=== PATIENT | male | born 1985 | race African-American/Black ===

== ENCOUNTER 2022-01-05 10:38 | Outpatient (REF) | payer OTHER, SELFPAY ==
[2022-01-05 13:44] LABS: MANUAL DIFF FLAG NO
[2022-01-05 13:52] LABS: Basophils Absolute Auto 0.1 X10*3/uL (0.0-0.2); Basophils Percent Auto 0.7 % (0-2); Eosinophils Absolute Auto 0.1 X10*3/uL (0.0-0.4); Eosinophils Percent Auto 1.4 % (0-4); Hematocrit 43.9 % (42.0-52.0); Hemoglobin 13.6 g/dl (14.0-18.0); Imm Gran Abs Auto 0.03 X10*3/uL (0.00-0.03); Imm Gran Pct Auto 0.4 % (0.0-0.4); Lymphocytes Absolute Auto 1.7 X10*3/uL (1.2-4.9); Lymphocytes Percent Auto 22.4 % (20-40); Mean Corpuscular Hemoglobin 25.2 pg (27.0-33.0); Mean Corpuscular Volume 81.3 fL (80.0-98.0); Mean Platelet Volume 9.7 fL (9.4-12.4); Monocytes Absolute Auto 0.8 X10*3/uL (0.1-1.2); Monocytes Percent Auto 10.3 % (2-11); Neutrophils Percent Auto 64.8 % (45-73); Platelet Count 343 X10*3/uL (160-400); White Blood Count 7.6 X10*3/uL (4.8-10.8)
[2022-01-05 14:00] LABS: Appearance Urine CLEAR; Color Urine YELLOW; Glucose Urine UA NEG (NEG); Leukocyte Esterase Urine NEG (NEG); Nitrite Urine NEG (NEG); UACC Culture Trigger NO; Urine Blood TRACE (NEG); Urine Ketones NEG (NEG); Urine Protein NEG (NEG-TRACE)
[2022-01-05 14:01] LABS: Alanine Aminotransferase 30 U/L (0-40); Albumin Level 3.7 g/dL (3.5-5.0); Alkaline Phosphatase 66 U/L (39-117); Anion Gap 14 (12-20); Aspartate Amino Transferase 22 U/L (5-37); Bilirubin Total 0.4 mg/dL (0.0-1.0); Blood Urea Nitrogen 11 mg/dL (9-16); Calcium 9.4 mg/dL (8.4-10.2); Carbon Dioxide 24 mmol/L (22-29); Chloride 103 mmol/L (96-108); Cholesterol 221 mg/dL; Estimated Glomerular Filt Rate > 60; Glucose Fasting 96 mg/dL (60-99); HDL Cholesterol 42 mg/dL; LDL Cholesterol Calculated 161 mg/dl; Potassium 4.1 mmol/L (3.3-5.1); Sodium 137 mmol/L (135-145); Total Protein 7.3 g/dL (6.5-8.0); Triglycerides 90 mg/dL
[2022-01-05 14:11] LABS: RBC Urine 0-2 /HPF (0); WBC Urine 0-2 /HPF (0-4)
[2022-01-05 14:22] LABS: TSH reflex Free T4 1.06 uIU/mL (0.32-4.0)
[2022-01-07 13:20] LABS: Prot Elec - Albumin 3.6 g/dL (3.8-4.8); Prot Elec - Alpha1 0.3 g/dL (0.2-0.3); Prot Elec - Alpha2 0.9 g/dL (0.5-0.9); Prot Elec - Beta 1 0.6 g/dL (0.4-0.6); Prot Elec - Beta 2 0.6 g/dL (0.2-0.5); Prot Elec - Gamma 1.3 g/dL (0.8-1.7); Prot Elec - Total Protein 7.3 g/dL (6.1-8.1)
[2022-01-09 21:26] LABS: Kappa Light Chain, Free Serum 34.2 mg/L (3.3-19.4); Kappa/Lambda Lt Ch Free Ratio 1.05 (0.26-1.65); Lambda Light Chain, Free Serum 32.7 mg/L (5.7-26.3)
== END 2022-01-05 10:39 | disposition home or self-care (01) ==
LOC: HO.HMGCLDS 10:38
PROVIDERS: Visit Provider Nurse Practitioner Family
DX: Z00.00 Encounter for general adult medical examination without abnormal findings (principal); Z83.49 Family history of other endocrine, nutritional and metabolic diseases
CPT/HCPCS: 36415; 80053; 80061; 81001; 81003; 83521; 84165; 84443; 85025

== ENCOUNTER 2022-01-07 10:26 | Outpatient (REF) | payer OTHER, SELFPAY ==
[2022-01-11 08:21] LABS: PEU-PROT/CRE Ratio mg/mg 0.062 (< OR = 0.114); PEU24-Albumin Urine 100 %; PEU24-Alpha 1 Globulin 0 %; PEU24-Alpha 2 Globulin 0 %; PEU24-Beta Globulin 0 %; PEU24-Gamma Globulin 0 %; Total Protein 24Hr Urine 180 mg/24 h (<150); Total Protein/Creat Ratio 24h 62 mg/g creat (< OR = 114)
== END 2022-01-07 10:27 | disposition home or self-care (01) ==
LOC: HO.HMGCLNP 10:26
PROVIDERS: Visit Provider Nurse Practitioner Family
DX: Z83.49 Family history of other endocrine, nutritional and metabolic diseases (principal)
CPT/HCPCS: 82570; 84156; 84166

== ENCOUNTER 2022-02-02 08:39 | Outpatient (REF) | payer OTHER, SELFPAY ==
--- NOTE | ~2022-02-02 | US_ITS ---
EXAMINATION: US RETROPERITONEAL COMPLETE (RENAL) CLINICAL INFORMATION: Other microscopic hematuria. COMPARISON: None TECHNIQUE: Real-time imaging of the kidneys and bladder. FINDINGS: RIGHT KIDNEY: 12.1 x 5.0 x 6.6 cm (SAG x AP x TRV). The kidney is normal in size, contour, and echogenicity. Renal cortical thickness is normal. No calculi or focal parenchymal lesions. No hydronephrosis. LEFT KIDNEY: 13.2 x 5.6 x 5.7 cm (SAG x AP x TRV). The kidney is normal in size, contour, and echogenicity. Renal cortical thickness is normal. No calculi or focal parenchymal lesions. No hydronephrosis. BLADDER: Well distended and normal. Bilateral ureteral jets are demonstrated. Prevoid bladder volume is 161 mL. Postvoid bladder volume is 5 mL. ADDITIONAL FINDINGS: Prostate is enlarged with a volume of 46 mL. Partially imaged liver appears echogenic. US/US retroperitoneal comp IMPRESSION: No hydronephrosis or nephrolithiasis. Prostate is mildly enlarged. Increased hepatic echogenicity which can be seen in the setting of hepatic steatosis or underlying liver disease.
== END 2022-02-02 08:40 | disposition home or self-care (01) ==
LOC: HO.HMGCX 08:39
PROVIDERS: Visit Provider Nurse Practitioner Family
DX: R31.29 Other microscopic hematuria (principal)
CPT/HCPCS: 76770

== ENCOUNTER 2022-11-27 08:06 | Outpatient (REF) | payer OTHER, SELFPAY ==
[2022-11-27 11:24] LABS: Urine Cytology See Pathology rpt
[2022-11-27 11:34] LABS: MANUAL DIFF FLAG NO
[2022-11-27 11:45] LABS: Basophils Absolute Auto 0.1 X10*3/uL (0.0-0.2); Basophils Percent Auto 0.6 % (0-2); Eosinophils Absolute Auto 0.1 X10*3/uL (0.0-0.4); Eosinophils Percent Auto 1.3 % (0-4); Hematocrit 44.3 % (42.0-52.0); Hemoglobin 13.7 g/dl (14.0-18.0); Imm Gran Abs Auto 0.03 X10*3/uL (0.00-0.03); Imm Gran Pct Auto 0.4 % (0.0-0.4); Lymphocytes Absolute Auto 2.8 X10*3/uL (1.2-4.9); Lymphocytes Percent Auto 33.9 % (20-40); Mean Corpuscular HGB Conc 30.9 g/dl (31.0-36.0); Mean Corpuscular Hemoglobin 24.8 pg (27.0-33.0); Mean Corpuscular Volume 80.1 fL (80.0-98.0); Mean Platelet Volume 10.3 fL (9.4-12.4); Monocytes Absolute Auto 0.8 X10*3/uL (0.1-1.2); Monocytes Percent Auto 9.7 % (2-11); Neutrophils Absolute Auto 4.5 x10*3/uL (2.0-8.3); Neutrophils Percent Auto 54.1 % (45-73); Platelet Count 339 X10*3/uL (160-400); Red Blood Count 5.53 X10*6/uL (4.60-5.80); Red Cell Distribution Width 16.3 % (11.0-16.0); White Blood Count 8.3 X10*3/uL (4.8-10.8)
[2022-11-27 12:15] LABS: Appearance Urine Clear; Color Urine Yellow; Glucose Urine UA Negative (Negative); Leukocyte Esterase Urine Negative (Negative); Nitrite Urine Negative (Negative); Specific Gravity - Urine 1.015 (1.005-1.025); Urine Blood Negative (Negative); Urine Ketones Negative (Negative); Urine Protein Negative (Neg-Trace)
[2022-11-27 12:21] LABS: Bacteria Urine None Seen (None Seen); Hyaline Casts Urine 0-2 /LPF (0-2); RBC Urine 0-2 /HPF (0-2); Squamous Epithelial Cell Urine 0-2 /HPF (0-2); WBC Urine 0-5 /HPF (0-5)
[2022-11-27 12:26] LABS: Cholesterol 218 mg/dL; HDL Cholesterol 38 mg/dL; Iron 38 mcg/dL (45-160); LDL Cholesterol Calculated 154 mg/dl; Percent Iron Saturation 14 % (15-50); Total Iron Binding Capacity 279 mcg/dL (228-428); Triglycerides 130 mg/dL; Unsaturated Iron Binding 241 ug/dL
[2022-11-27 12:59] LABS: Ferritin 225 ng/mL (20-250); Folate 4.4 ng/mL (> or = 4.0); Vitamin B12 403 pg/mL (200-900)
== END 2022-11-27 08:07 | disposition home or self-care (01) ==
LOC: HO.HMGCLDS 08:06
PROVIDERS: PCP Nurse Practitioner Family; Visit Provider Nurse Practitioner Family
DX: Z00.00 Encounter for general adult medical examination without abnormal findings (principal); E78.5 Hyperlipidemia, unspecified; R31.29 Other microscopic hematuria; D64.9 Anemia, unspecified
CPT/HCPCS: 36415; 80061; 81001; 81003; 82607; 82728; 82746; 83540; 85025; 87086; 88112

== ENCOUNTER 2023-03-02 09:43 | Outpatient (REF) | payer OTHER, SELFPAY ==
[2023-03-02 11:17] LABS: MANUAL DIFF FLAG NO
[2023-03-02 11:32] LABS: Appearance Urine Clear; Basophils Absolute Auto 0.1 X10*3/uL (0.0-0.2); Basophils Percent Auto 0.8 % (0-2); Color Urine Yellow; Eosinophils Absolute Auto 0.1 X10*3/uL (0.0-0.4); Eosinophils Percent Auto 1.8 % (0-4); Glucose Urine UA Negative (Negative); Hematocrit 43.5 % (42.0-52.0); Hemoglobin 13.7 g/dl (14.0-18.0); Imm Gran Abs Auto 0.03 X10*3/uL (0.00-0.03); Imm Gran Pct Auto 0.4 % (0.0-0.4); Leukocyte Esterase Urine Negative (Negative); Lymphocytes Absolute Auto 2.4 X10*3/uL (1.2-4.9); Lymphocytes Percent Auto 32.7 % (20-40); Mean Corpuscular HGB Conc 31.5 g/dl (31.0-36.0); Mean Corpuscular Volume 79.4 fL (80.0-98.0); Mean Platelet Volume 9.7 fL (9.4-12.4); Monocytes Absolute Auto 0.6 X10*3/uL (0.1-1.2); Monocytes Percent Auto 8.9 % (2-11); Neutrophils Percent Auto 55.4 % (45-73); Nitrite Urine Negative (Negative); PH 6.5 (5.0-9.0); Platelet Count 327 X10*3/uL (160-400); Red Blood Count 5.48 X10*6/uL (4.60-5.80); Red Cell Distribution Width 16.6 % (11.0-16.0); Urine Blood Negative (Negative); Urine Ketones Negative (Negative); Urine Protein Negative (Neg-Trace); White Blood Count 7.2 X10*3/uL (4.8-10.8)
[2023-03-02 13:30] LABS: Alanine Aminotransferase 28 U/L (0-40); Albumin Level 3.6 g/dL (3.5-5.0); Alkaline Phosphatase 60 U/L (39-117); Anion Gap 13 (12-20); Aspartate Amino Transferase 21 U/L (5-37); Bilirubin Total 0.4 mg/dL (0.0-1.0); Blood Urea Nitrogen 14 mg/dL (9-16); Calcium 9.7 mg/dL (8.4-10.2); Carbon Dioxide 25 mmol/L (22-29); Chloride 106 mmol/L (96-108); Cholesterol 194 mg/dL; Estimated Glomerular Filt Rate > 60; Glucose Random 97 mg/dL (60-115); HDL Cholesterol 41 mg/dL; Iron 78 mcg/dL (45-160); LDL Cholesterol Calculated 139 mg/dl; Percent Iron Saturation 29 % (15-50); Potassium 3.8 mmol/L (3.3-5.1); Sodium 140 mmol/L (135-145); Total Iron Binding Capacity 269 mcg/dL (228-428); Total Protein 7.5 g/dL (6.5-8.0); Triglycerides 74 mg/dL; Unsaturated Iron Binding 191 ug/dL
[2023-03-02 13:32] LABS: Iron 78 mcg/dL (45-160); Percent Iron Saturation 29 % (15-50); Total Iron Binding Capacity 270 mcg/dL (228-428); Unsaturated Iron Binding 192 ug/dL
[2023-03-02 13:38] LABS: Ferritin 258 ng/mL (20-250)
[2023-03-02 13:39] LABS: Ferritin 239 ng/mL (20-250); TSH reflex Free T4 1.62 uIU/mL (0.32-4.0)
== END 2023-03-02 09:44 | disposition home or self-care (01) ==
LOC: HO.HMGCLDS 09:43
PROVIDERS: PCP Nurse Practitioner Family; Visit Provider Nurse Practitioner Family
DX: I10 Essential (primary) hypertension (principal); D64.9 Anemia, unspecified; E78.5 Hyperlipidemia, unspecified
CPT/HCPCS: 36415; 80053; 80061; 81003; 82728; 83540; 84443; 85025

== ENCOUNTER 2023-09-12 11:22 | Outpatient (REF) | payer OTHER, SELFPAY ==
[2023-09-12 13:29] LABS: Appearance Urine Clear; Color Urine Yellow; Glucose Urine UA Negative (Negative); Leukocyte Esterase Urine Negative (Negative); Nitrite Urine Negative (Negative); Urine Blood Negative (Negative); Urine Ketones Negative (Negative); Urine Protein Negative (Neg-Trace)
[2023-09-12 13:38] LABS: MANUAL DIFF FLAG NO
[2023-09-12 13:53] LABS: Basophils Absolute Auto 0.1 X10*3/uL (0.0-0.2); Basophils Percent Auto 0.6 % (0-2); Eosinophils Absolute Auto 0.2 X10*3/uL (0.0-0.4); Eosinophils Percent Auto 2.2 % (0-4); Hematocrit 44.6 % (42.0-52.0); Hemoglobin 14.3 g/dl (14.0-18.0); Imm Gran Abs Auto 0.07 X10*3/uL (0.00-0.03); Imm Gran Pct Auto 0.8 % (0.0-0.4); Lymphocytes Absolute Auto 2.5 X10*3/uL (1.2-4.9); Lymphocytes Percent Auto 29.3 % (20-40); Mean Corpuscular HGB Conc 32.1 g/dl (31.0-36.0); Mean Corpuscular Hemoglobin 25.8 pg (27.0-33.0); Mean Corpuscular Volume 80.4 fL (80.0-98.0); Mean Platelet Volume 9.6 fL (9.4-12.4); Monocytes Absolute Auto 0.9 X10*3/uL (0.1-1.2); Monocytes Percent Auto 10.8 % (2-11); Neutrophils Absolute Auto 4.8 x10*3/uL (2.0-8.3); Neutrophils Percent Auto 56.3 % (45-73); Platelet Count 315 X10*3/uL (160-400); Red Blood Count 5.55 X10*6/uL (4.60-5.80); Red Cell Distribution Width 15.8 % (11.0-16.0); White Blood Count 8.5 X10*3/uL (4.8-10.8)
[2023-09-12 16:59] LABS: Alanine Aminotransferase 49 U/L (0-40); Albumin Level 3.7 g/dL (3.5-5.0); Alkaline Phosphatase 59 U/L (39-117); Anion Gap 14 (12-20); Aspartate Amino Transferase 35 U/L (5-37); Bilirubin Total 0.3 mg/dL (0.0-1.0); Blood Urea Nitrogen 12 mg/dL (9-16); Calcium 9.4 mg/dL (8.4-10.2); Carbon Dioxide 24 mmol/L (22-29); Chloride 105 mmol/L (96-108); Cholesterol 212 mg/dL (<200); Estimated Glomerular Filt Rate > 60; Glucose Fasting 91 mg/dL (60-99); HDL Cholesterol 52 mg/dL (>40); LDL Cholesterol Calculated 136 mg/dL (<100); Potassium 3.8 mmol/L (3.3-5.1); Sodium 139 mmol/L (135-145); Total Protein 7.5 g/dL (6.5-8.0); Triglycerides 124 mg/dL (<150)
[2023-09-12 17:03] LABS: TSH reflex Free T4 2.01 uIU/mL (0.32-4.0)
== END 2023-09-12 11:23 | disposition home or self-care (01) ==
LOC: HO.HMGCLDS 11:22
PROVIDERS: PCP Nurse Practitioner Family; Visit Provider Nurse Practitioner Family
DX: E78.5 Hyperlipidemia, unspecified (principal); I10 Essential (primary) hypertension
CPT/HCPCS: 36415; 80053; 80061; 81003; 84443; 85025

== ENCOUNTER 2024-02-12 08:43 | Outpatient (REF) | payer OTHER, SELFPAY ==
[2024-02-12 10:22] LABS: MANUAL DIFF FLAG NO
[2024-02-12 10:33] LABS: Appearance Urine Clear; Color Urine Yellow; Glucose Urine UA Negative (Negative); Leukocyte Esterase Urine Negative (Negative); Nitrite Urine Negative (Negative); Urine Blood Negative (Negative); Urine Ketones Negative (Negative); Urine Protein Negative (Neg-Trace)
[2024-02-12 10:34] LABS: Basophils Percent Auto 0.8 % (0-2); Eosinophils Absolute Auto 0.1 X10*3/uL (0.0-0.4); Eosinophils Percent Auto 2.3 % (0-4); Hematocrit 45.1 % (42.0-52.0); Hemoglobin 14.1 g/dl (14.0-18.0); Imm Gran Abs Auto 0.02 X10*3/uL (0.00-0.03); Imm Gran Pct Auto 0.4 % (0.0-0.4); Lymphocytes Percent Auto 39.9 % (20-40); Mean Corpuscular HGB Conc 31.3 g/dl (31.0-36.0); Mean Corpuscular Hemoglobin 25.3 pg (27.0-33.0); Neutrophils Absolute Auto 1.9 x10*3/uL (2.0-8.3); Neutrophils Percent Auto 36.6 % (45-73); Platelet Count 305 X10*3/uL (160-400); Red Blood Count 5.57 X10*6/uL (4.60-5.80); Red Cell Distribution Width 16.4 % (11.0-16.0); White Blood Count 5.1 X10*3/uL (4.8-10.8)
[2024-02-12 10:56] LABS: Alanine Aminotransferase 24 U/L (0-40); Albumin Level 3.8 g/dL (3.5-5.0); Alkaline Phosphatase 65 U/L (39-117); Anion Gap 12 (12-20); Aspartate Amino Transferase 20 U/L (5-37); Bilirubin Total 0.2 mg/dL (0.0-1.0); Blood Urea Nitrogen 16 mg/dL (9-16); Calcium 9.1 mg/dL (8.4-10.2); Carbon Dioxide 25 mmol/L (22-29); Chloride 107 mmol/L (96-108); Cholesterol 198 mg/dL (<200); Estimated Glomerular Filt Rate > 60; Glucose Fasting 97 mg/dL (60-99); HDL Cholesterol 41 mg/dL (>40); LDL Cholesterol Calculated 141 mg/dL (<100); Potassium 3.9 mmol/L (3.3-5.1); Sodium 140 mmol/L (135-145); Total Protein 7.5 g/dL (6.5-8.0); Triglycerides 84 mg/dL (<150)
[2024-02-12 11:14] LABS: TSH reflex Free T4 1.18 uIU/mL (0.32-4.0)
== END 2024-02-12 08:44 | disposition home or self-care (01) ==
LOC: HO.HMGCLDS 08:43
PROVIDERS: PCP Nurse Practitioner Family; Visit Provider Nurse Practitioner Family
DX: Z00.00 Encounter for general adult medical examination without abnormal findings (principal); Z13.6 Encounter for screening for cardiovascular disorders
CPT/HCPCS: 36415; 80053; 80061; 81003; 84443; 85025

== ENCOUNTER 2024-02-14 11:26 | Outpatient (AMB) | payer OTHER, SELFPAY ==
--- NOTE | 2024-02-14 11:28 | A.OFFPC_ITS ---
Vital Signs 02/14/24 11:31 02/14/24 12:25 Height 6 ft 1 in Weight 308 lb BMI 40.6 BP 130/90 H 130/88 Blood Pressure Location Rt brachial Position Sitting Pulse 78 Pulse Source Pulse Oximeter Pulse Oximetry (%) 98 Oxygen Delivery Method Room Air Intake Visit Reasons: weight loss options Intake Note: Patient here to discuss weight loss options and right eye redness that has been present for about 2 days. Allergies No Known Allergies Allergy (Verified 02/14/24 11:32) Tobacco use date assessed: 02/14/24 Dental Screening Dental Screen Date: 02/14/24 Did you have a dental visit in the last 12 months?: Yes Did you have a dental problem in the last 6 months where you did not have access to dental care?: No Was dental information given to patient?: Patient has dentist HPI weight loss options HPI Details Dyslipidemia: Pt reports that he has not been taking rosuvastatin because he forgot about it. Will resend rosuvastatin 10mg. Denies chest pain, shortness of breath, and dizziness. Pt has been losing weight. Pt reports deve loping right conjunctivitis 2 days ago. Will send ocuflox. dyslipidemia: pt has not been on his statin in quite sometime, will restart PFSH Medical History HTN (hypertension) Dyslipidemia Surgical History History of knee surgery Social History Housing: House Patient Tobacco Use Status: Never used Tobacco e-Cigarette/Vaping Use: Currently Using Second Hand Smoke Exposure: No service: No Current occupational status: employed Current occupation: [employer] Current occupational exposures/hazards: No Cognitive needs: No Hearing needs: No Vision needs: No Questionnaire PHQ-9 Over the last 2 weeks, how often have you been bothered by any of the following problems? 84483 - PHQ-9 Billing: Patient declined-do not bill Source: Developed by Drs. Vadim Kuo, Marcia Swain, Lam Vasquez and colleagues, with an educational shellie from [employer]. Thrive Questionnaire Date Thrive assessed: 12/07/22 AUDIT C Alcohol Use Questionnaire (AUDIT-C) 1. How often do you have a drink containing alcohol?: Monthly or less 2. How many drinks containing alcohol do you have on a typical day when you are drinking?: 3 or 4 3. How often do you have six or more drinks on one occasion?: Never Total Score: 2 Score Reviewed/Action Taken: No ARABELLA-7 AMB Questionnaire ARABELLA-7 Date ARABELLA - 7 assessed: 12/07/22 Source: Developed by Drs. Vadim Kuo, Marcia Swain, Lam Vasquez and colleagues, with an educational shellie from [employer]. ARABELLA-7 Assessment Billing ARABELLA-7 Assessment Tool: pt declined-do not bill Review of Systems Const Reports as per HPI Physical exam (Primary Care) Vital Signs: Last Vital Signs Pulse 78 02/14/24 11:31 BP 130/88 02/14/24 12:25 Pulse Ox 98 02/14/24 11:31 Oxygen Delivery Method Room Air 02/14/24 11:31 BMI result Body Mass Index 40.6 Tobacco/Smoking Status: Tobacco use Status Tobacco use date assessed 02/14/24 02/14/24 11:35 Patient Tobacco Use Status Never used Tobacco 02/14/24 11:30 e-Cigarette/Vaping Use Currently Using 02/14/24 11:30 Thrive Assessment: Date of Thrive Assessment Date Thrive assessed 12/07/22 02/14/24 11:30 Const General: cooperative Nutritional Appearance: obese morbidly obese Orientation/consciousness: patient oriented x3 Eyes Other: right lower conjuctiva swollen and erythematous, sclera erythematous Resp Effort & Inspection: normal respiratory effort Auscultation: clear to auscultation bilaterally Cardio Rate: regular rate Rhythm: regular rhythm Heart sounds: S1 normal heart sound present and S2 normal heart sound present Neuro General: patient oriented x3 Psych Appearance: grossly normal Mental Status: mental status grossly normal Speech and movement: Normal speech and movement present Affect: normal affect Attitude: cooperative Thought process: Normal thought process present Thought content: Normal thought content present Insight: Good insight present (Psych) Judgement: Good judgement present (Psych) Assessment and Plan Assessment & Plan (1) Obesity: Code(s): E66.9 - Obesity, unspecified Plan: cont to work on diet and exercise (2) Dyslipidemia: Code(s): E78.5 - Hyperlipidemia, unspecified Plan: restarted rosuvastatin Plan The patient agreed to the use of a district medical examiner for this encounter. Scribed for HARTIHA Wills by Skye Mcarthur district medical examiner, on 02/14/2024 at 11:50 EST. Medications: New rosuvastatin 10 mg PO DAILY 90 tabs 0RF ofloxacin 0.3% (Ocuflox) 2 drps ophthalmic (eye) QID 10 mL 0RF 5 days Coding Level of Care Code Est Pt Level 3 (57811) Diagnoses Obesity E66.9 Dyslipidemia E78.5
[2024-02-14 11:31] VITALS: BP 130/90; PULSE 78; O2SAT 98; BMI 40.6
[2024-02-14 12:25] VITALS: BP 130/88
== END 2024-02-14 12:32 | disposition home or self-care (01) ==
PROVIDERS: PCP Nurse Practitioner Family; Visit Provider Nurse Practitioner Family
DX: E78.5 Hyperlipidemia, unspecified (principal); E66.9 Obesity, unspecified; Z68.41 Body mass index [BMI] 40.0-44.9, adult
CPT/HCPCS: 99213

== ENCOUNTER 2024-09-09 09:48 | Outpatient (REF) | payer OTHER, SELFPAY ==
[2024-09-09 13:16] LABS: MANUAL DIFF FLAG NO
[2024-09-09 13:22] LABS: Basophils Percent Auto 0.6 % (0-2); Eosinophils Absolute Auto 0.2 X10*3/uL (0.0-0.4); Eosinophils Percent Auto 3.3 % (0-4); Hematocrit 44.4 % (42.0-52.0); Hemoglobin 14.2 g/dl (14.0-18.0); Imm Gran Abs Auto 0.02 X10*3/uL (0.00-0.03); Imm Gran Pct Auto 0.3 % (0.0-0.4); Lymphocytes Absolute Auto 3.6 X10*3/uL (1.2-4.9); Mean Corpuscular Hemoglobin 26.2 pg (27.0-33.0); Mean Corpuscular Volume 81.9 fL (80.0-98.0); Mean Platelet Volume 9.9 fL (9.4-12.4); Monocytes Absolute Auto 0.7 X10*3/uL (0.1-1.2); Monocytes Percent Auto 9.9 % (2-11); Neutrophils Absolute Auto 2.4 x10*3/uL (2.0-8.3); Neutrophils Percent Auto 33.9 % (45-73); Platelet Count 279 X10*3/uL (160-400); Red Blood Count 5.42 X10*6/uL (4.60-5.80); Red Cell Distribution Width 15.6 % (11.0-16.0)
[2024-09-09 13:24] LABS: Appearance Urine Clear; Color Urine Yellow; Glucose Urine UA Negative (Negative); Leukocyte Esterase Urine Negative (Negative); Nitrite Urine Negative (Negative); Urine Blood Negative (Negative); Urine Ketones Negative (Negative); Urine Protein Negative (Neg-Trace)
[2024-09-09 13:39] LABS: Alanine Aminotransferase 40 U/L (0-40); Albumin Level 3.8 g/dL (3.5-5.0); Alkaline Phosphatase 75 U/L (39-117); Anion Gap 11 (12-20); Aspartate Amino Transferase 34 U/L (5-37); Bilirubin Total 0.3 mg/dL (0.0-1.0); Blood Urea Nitrogen 14 mg/dL (9-16); Calcium 9.2 mg/dL (8.4-10.2); Carbon Dioxide 26 mmol/L (22-29); Chloride 106 mmol/L (96-108); Cholesterol 250 mg/dL (<200); Estimated Glomerular Filt Rate > 60; Glucose Fasting 103 mg/dL (60-99); HDL Cholesterol 42 mg/dL (>40); LDL Cholesterol Calculated 189 mg/dL (<100); Potassium 3.8 mmol/L (3.3-5.1); Sodium 139 mmol/L (135-145); Total Protein 7.6 g/dL (6.5-8.0); Triglycerides 97 mg/dL (<150)
[2024-09-09 14:22] LABS: TSH reflex Free T4 0.81 uIU/mL (0.32-4.0)
== END 2024-09-09 09:49 | disposition home or self-care (01) ==
LOC: HO.HMGCLDS 09:48
PROVIDERS: PCP Nurse Practitioner Family; Visit Provider Nurse Practitioner Family
DX: I10 Essential (primary) hypertension (principal)
CPT/HCPCS: 36415; 80053; 80061; 81003; 84443; 85025

== ENCOUNTER 2024-10-01 08:23 | Outpatient (AMB) | payer OTHER, SELFPAY ==
[2024-10-01 08:26] VITALS: BP 132/80; PULSE 76; O2SAT 98; BMI 43.5
--- NOTE | 2024-10-01 08:26 | A.OFFPC_ITS ---
Vital Signs 10/01/24 08:26 Height 6 ft 1 in Weight 330 lb BMI 43.5 BP 132/80 Blood Pressure Location Rt brachial Position Sitting Pulse 76 Pulse Source Pulse Oximeter Pulse Oximetry (%) 98 Oxygen Delivery Method Room Air Intake Visit Reasons: PE Intake Note: pt is here for annual exam Loan Documents Closer Required: No Accompanied by: Self / Same As Patient Allergies No Known Allergies Allergy (Verified 10/01/24 08:26) Tobacco use date assessed: 10/01/24 Dental Screening Dental Screen Date: 10/01/24 Did you have a dental visit in the last 12 months?: Yes Did you have a dental problem in the last 6 months where you did not have access to dental care?: No Was dental information given to patient?: Patient has dentist HPI PE HPI Details History of Present Illness The patient is a 39-year-old male presenting with a previous allergic reaction. Approximately one to one and a half months ago, he experienced a reaction after dining at a restaurant. The reaction consisted of widespread hives but was not accompanied by shortness of breath or throat closure. The patient speculated that a spice might have been the cause, although he is unsure. He reported that taking allergy medication was effective in alleviating the hives. The following day, the patient developed dry, peeling skin, but has not experienced any similar reactions since. Currently, he denies experiencing fever, chills, nausea, vomiting, or gastrointestinal disturbances such as diarrhea or constipation. He is monitoring his condition and will report if the reaction recurs. Health Maintenance - Discussed potential use of GLP-[address] for weight management. - Advised the patient to contact his [facility] provider for coverage details regarding GLP-1 agonists. Social History Review of Systems - General: Denies fever, chills. - Gastrointestinal: Denies nausea, vomit ing, constipation, diarrhea. - Psychological: Denies depression, anxi ety, suicidal thoughts, homicidal thoughts. Physical Exam General: Cooperative, healthy appearing, comfortable, no acute distress and well developed, morbidly obese Orientation: Patient oriented x3 Limitations: No limitations Head: Normal to inspection Ears: Hearing grossly normal bilaterally Nose: Normal external nose present Face and sinus: Normal facial exam Eyes: Appearance normal, both eyes and all related structures Neck: Normal visual inspection and Yes full ROM Respiratory: Normal respiratory effort and able to speak in complete sentences. Clear to auscultation bilaterally Cardiovascular: Regular rate and rhythm. Normal S1 and S2 GI: Normal to inspection. Soft to palpation and nontender Skin: No rashes or lesions noted, history of hives and very dry skin that peeled after an allergic reaction Neuro: Patient oriented x3 Extremities: Normal to inspection, no edema Results Plan - Allergy Management: Advised continued observation. Instructed to monitor for any recurrences of allergic reactions and report back. - Weight Management: Discussed the possi bility of initiating a GLP-1 agonist if covered by insurance. Encouraged continued efforts with diet and exercise for weight management. Advised the patient to contact insurance regarding coverage for medications in this class. Patient was informed and verbally consented to the use of an ambient scribe for clinic note documentation during this visit. Discussion Notes I discussed the patient's recent allergic reaction and the effectiveness of the allergy medication in resolving the hives. As he did not experience typical severe symptoms such as shortness of breath, it is possible that it was a mild allergic reaction. I instructed him to stay vigilant and report any recurrences. We also considered the potential benefits of a GLP-1 agonist for weight management, pending insurance coverage. The patient understands the necessity of confirming coverage with his insurance provider. Patient Instructions - Monitor for any symptoms of a recurren t allergic reaction and report if they occur. - Continue with a balanced diet and regu lar exercise as previously discussed. - Contact your insurance provider to det ermine coverage options for a GLP-1 agonist. [facility] Medical History HTN (hypertension) Dyslipidemia Surgical History History of knee surgery Social History Housing: House Patient Tobacco Use Status: Never used Tobacco e-Cigarette/Vaping Use: Currently Using Second Hand Smoke Exposure: No service: No Current occupational status: employed Current occupation: [employer] Current occupational exposures/hazards: No Cognitive needs: No Hearing needs: No Vision needs: No Questionnaire PHQ-9 Over the last 2 weeks, how often have you been bothered by any of the following problems? 1. Little interest or pleasure in doing things: not at all 2. Feeling down, depressed, or hopeless: not at all 3. Trouble falling or staying asleep, or sleeping too much: not at all 4. Feeling tired or having little energy: not at all 5. Poor appetite or overeating: not at all 6. Feeling bad about yourself - or that you are a failure or have let yourself or your family down: not at all 7. Trouble concentrating on things, such as reading the newspaper or watching television: not at all 8. Moving or speaking so slowly that other people could have noticed. Or the opposite - being so fidgety or restless that you have been moving around a lot more than usual: not at all 9. Thoughts that you would be better off or of hurting yourself in some way: not at all Total score: 0 Depression Screening Interpretation: Negative Depression Screening Done: Yes 59116 - PHQ-9 Billing: Yes Source: Developed by Drs. Vadim Kuo, Marcia Swain, Lam Vasquez and colleagues, with an educational shellie from [employer]. Thrive Questionnaire Date Thrive assessed: 10/01/24 I am a: Patient What is your living situation today?: I choose not to answer this question Within the past 12 months, did the food you bought not last and you didn't have the money to get more?: I choose not to answer this question Within the past 12 months, did you worry whether your food would run out before you got money to buy more?: I choose not to answer this question Do you have trouble paying for medicines?: I choose not to answer this question Do you have trouble getting transportation to medical appointments?: I choose not to answer this question Do you have trouble paying your heating and electricity bill?: I choose not to answer this question Do you have trouble taking care of your child, family member or friend?: I choose not to answer this question Do you have trouble with day-to-day activities such as bathing, preparing meals, shopping, managing finances, etc.?: I choose not to answer this question Are you currently unemployed and looking for a job?: I choose not to answer this question Are you interested in more education?: I choose not to answer this question Please select the resources that you would like help with: None Currently or been in a relationship where the following occur: I choose not to answer THRIVE Score: 0 AUDIT C Alcohol Use Questionnaire (AUDIT-C) 1. How often do you have a drink containing alcohol?: Monthly or less 2. How many drinks containing alcohol do you have on a typical day when you are drinking?: 1 or 2 3. How often do you have six or more drinks on one occasion?: Less than monthly Total Score: 2 Score Reviewed/Action Taken: Yes ARABELLA-7 AMB Questionnaire ARABELLA-7 Date ARABELLA - 7 assessed: 10/01/24 Feeling nervous, anxious, or on edge: 0 = Not at all Not being able to stop or control worryin = Not at all Worrying too much about different things: 0 = Not at all Trouble relaxin = Not at all Being so restless that it is hard to sit still: 0 = Not at all Becoming easily annoyed or irritable: 0 = Not at all Feeling afraid as if something awful might happen: 0 = Not at all Total ARABELLA-7 score (0-4 normal; 5-9 mild; 10-14 moderate; 15-21 severe): 0 Source: Developed by Drs. Vadim Kuo, Marcia Swain, Lam Vasquez and colleagues, with an educational shellie from [employer]. ARABELLA-7 Assessment Billing ARABELLA-7 Assessment Tool: ARABELLA-7 Assessment 64434 Physical exam (Primary Care) Vital Signs: Last Vital Signs Pulse 76 10/01/24 08:26 BP 132/80 10/01/24 08:26 Pulse Ox 98 10/01/24 08:26 Oxygen Delivery Method Room Air 10/01/24 08:26 BMI result Body Mass Index 43.5 Tobacco/Smoking Status: Tobacco use Status Tobacco use date assessed 10/01/24 10/01/24 08:27 Patient Tobacco Use Status Never used Tobacco 10/01/24 08:27 e-Cigarette/Vaping Use Currently Using 10/01/24 08:27 PHQ-9: PHQ-9 Score PHQ-9: Total score 0 10/01/24 08:54 Depression Screening Interpretation: Negative Thrive Assessment: Date of Thrive Assessment Date Thrive assessed 10/01/24 10/01/24 08:27 Currently or been in a relationship where the following occur: I choose not to answer Coding Level of Care Code Est Pt Prev Care 18-39y(63795) Diagnoses Physical exam Z00.00 Additional Codes ARABELLA-7 Assessment Billing - ARABELLA-7 Assessment Tool: ARABELLA-7 Assessment 50358 ([id number]) PHQ-9 - 78406 - PHQ-9 Billing: Yes ([id number]) Assessment & Plan Assessment & Plan (1) Physical exam: Code(s): Z00.00 - Encounter for general adult medical examination without abnormal findings Category: Medical Plan: . Plan . Orders: Orders UA CC w/rflx Micro + Cult Today Z00.00 - Encounter for general adult medical examination without abnormal findings Complete Blood Count Auto Diff Today Z00.00 - Encounter for general adult medical examination without abnormal findings Comprehensive Gap. Panel Fast Today Z00.00 - Encounter for general adult medical examination without abnormal findings TSH reflex Free T4 Today Z00.00 - Encounter for general adult medical examination without abnormal findings Lipid Panel Today Z00.00 - Encounter for general adult medical examination without abnormal findings
== END 2024-10-01 09:18 | disposition home or self-care (01) ==
PROVIDERS: PCP Nurse Practitioner Family; Visit Provider Nurse Practitioner Family
DX: Z00.00 Encounter for general adult medical examination without abnormal findings (principal); Z23 Encounter for immunization

== ENCOUNTER → 2024-10-01 08:23 | Outpatient (BNVA) | payer OTHER, SELFPAY | PROVIDERS: PCP Nurse Practitioner Family; Visit Provider Nurse Practitioner Family | DX: Z00.00 Encounter for general adult medical examination without abnormal findings (principal); Z23 Encounter for immunization | CPT/HCPCS: 90471; 90656; 96127 ==

== ENCOUNTER 2025-03-31 09:08 | Outpatient (REF) | payer OTHER, SELFPAY ==
[2025-03-31 10:19] LABS: MANUAL DIFF FLAG NO
[2025-03-31 10:20] LABS: Appearance Urine Clear; Glucose Urine UA Negative (Negative); PH 6.0 (5.0-9.0); Specific Gravity - Urine 1.025 (1.005-1.025); UMIC TRIGGER UACC YES
[2025-03-31 10:43] LABS: Hematocrit 43.2 % (42.0-52.0); Hemoglobin 13.7 g/dl (14.0-18.0); Imm Gran Abs Auto 0.02 X10*3/uL (0.00-0.03); Imm Gran Pct Auto 0.2 % (0.0-0.4); Lymphocytes Absolute Auto 4.0 X10*3/uL (1.2-4.9); Mean Corpuscular HGB Conc 31.7 g/dl (31.0-36.0); Mean Corpuscular Hemoglobin 26.2 pg (27.0-33.0); Mean Corpuscular Volume 82.8 fL (80.0-98.0); NRBC Abs Auto 0.000 X10*3/uL (0.0-0.012); NRBC Pct Auto 0.0 /100WBC (0.0-0.2); Platelet Count 301 X10*3/uL (160-400); Red Blood Count 5.22 X10*6/uL (4.60-5.80); White Blood Count 8.1 X10*3/uL (4.8-10.8)
[2025-03-31 11:00] LABS: Alanine Aminotransferase 36 U/L (0-40); Albumin Level 3.9 g/dL (3.5-5.0); Alkaline Phosphatase 56 U/L (39-117); Anion Gap 13 (12-20); Aspartate Amino Transferase 33 U/L (5-37); Blood Urea Nitrogen 14 mg/dL (9-16); Calcium 9.3 mg/dL (8.4-10.2); Carbon Dioxide 25 mmol/L (22-29); Chloride 106 mmol/L (96-108); Cholesterol 213 mg/dL (<200); Estimated Glomerular Filt Rate > 60; HDL Cholesterol 38 mg/dL (>40); Potassium 3.9 mmol/L (3.3-5.1); Sodium 140 mmol/L (135-145); Total Protein 7.5 g/dL (6.5-8.0); Triglycerides 119 mg/dL (<150)
== END 2025-03-31 09:09 | disposition home or self-care (01) ==
LOC: HO.HMGCLDS 09:08
PROVIDERS: PCP Nurse Practitioner Family; Visit Provider Nurse Practitioner Family
DX: Z00.00 Encounter for general adult medical examination without abnormal findings (principal)
CPT/HCPCS: 36415; 80053; 80061; 81001; 84443; 85025

== ENCOUNTER 2025-04-16 06:56 | Outpatient (AMB) | payer OTHER, SELFPAY ==
--- NOTE | 2025-04-16 08:13 | A.OFFPC_ITS ---
Intake Visit Reasons: follow up labs Allergies No Known Allergies Allergy (Verified 10/01/24 08:26) Medication List - Last Reconciled 04/16/25 by STELLA Gifford- ofloxacin 0.3% (Ocuflox) 2 drps ophthalmic (eye) QID 5 days rosuvastatin 10 mg PO DAILY Tobacco use date assessed: 10/01/24 Dental Screening Dental Screen Date: 10/01/24 HPI follow up labs HPI Details History of Present Illness The patient is a 40-year-old male presenting for a general follow-up visit with concerns about his family history of amyloidosis. His father is currently hospitalized, on a renal transplant list, and under cardiology care (assumed cardiomyopathy), which raises concerns about potential hereditary implications. The patient has previously consulted hematology in 2021 due to this family history, but no specific testing for family members was recommended at that time. He has been advised on the importance of screening tests and lifestyle modifications, including smoking cessation, weight control, and blood pressure management. The patient is currently on a statin for hyperlipidemia and is classified as morbidly obese. He denies experiencing any chest pain, fatigue, shortness of breath, gastrointestinal symptoms, or orthopnea. Review of Systems - Cardiovascular: Denies chest pain, ort hopnea, or paroxysmal nocturnal dyspnea. - Respiratory: Denies shortness of breat h. - Gastrointestinal: Denies blood in stoo l, constipation, or diarrhea. - General: Denies fatigue, fever, or chi lls. Plan The patient will undergo an echocardiogram to assess cardiac function, given the family history of amyloidosis and potential cardiomyopathy. A referral to cardiology is planned for further evaluation and management of any potential cardiac issues. Emphasis was placed on lifestyle modifications, including weight loss, and blood pressure control, to mitigate cardiovascular risks. The patient is advised to continue statin therapy for hyperlipidemia management. Patient was informed and verbally consented to the use of an ambient scribe for clinic note documentation during this visit. Discussion Notes I discussed with the patient the importance of undergoing an echocardiogram and the referral to cardiology for further evaluation due to his family history of amyloidosis. We talked about the significance of lifestyle changes, including weight loss and smoking cessation, to reduce cardiovascular risks. Patient Instructions - Schedule and complete the echocardiogr am as advised. - Follow up with the search manager as ref erred. - Continue taking your statin medication as prescribed. - Focus on weight loss through diet and exercise. - Avoid smoking [facility] Medical History HTN (hypertension) Dyslipidemia Surgical History History of knee surgery Social History Housing: House Patient Tobacco Use Status: Never used Tobacco e-Cigarette/Vaping Use: Currently Using Second Hand Smoke Exposure: No service: No Current occupational status: employed Current occupation: [employer] Current occupational exposures/hazards: No Cognitive needs: No Hearing needs: No Vision needs: No Questionnaire Thrive Questionnaire Date Thrive assessed: 10/01/24 I am a: Patient What is your living situation today?: I choose not to answer this question Within the past 12 months, did the food you bought not last and you didn't have the money to get more?: I choose not to answer this question Within the past 12 months, did you worry whether your food would run out before you got money to buy more?: I choose not to answer this question Do you have trouble paying for medicines?: I choose not to answer this question Do you have trouble getting transportation to medical appointments?: I choose not to answer this question Do you have trouble paying your heating and electricity bill?: I choose not to answer this question Do you have trouble taking care of your child, family member or friend?: I choose not to answer this question Do you have trouble with day-to-day activities such as bathing, preparing meals, shopping, managing finances, etc.?: I choose not to answer this question Are you currently unemployed and looking for a job?: I choose not to answer this question Are you interested in more education?: I choose not to answer this question Please select the resources that you would like help with: None Currently or been in a relationship where the following occur: I choose not to answer THRIVE Score: 0 ARABELLA-7 AMB Questionnaire ARABELLA-7 Date ARABELLA - 7 assessed: 10/01/24 Source: Developed by Drs. Vadim Kuo, Marcia Swain, Lam Kroenke a nd colleagues, with an educational shellie from [employer]. Physical exam (Primary Care) Tobacco/Smoking Status: Tobacco use Status Tobacco use date assessed 10/01/24 10/01/24 08:27 Patient Tobacco Use Status Never used Tobacco 10/01/24 08:27 e-Cigarette/Vaping Use Currently Using 10/01/24 08:27 Thrive Assessment: Date of Thrive Assessment Date Thrive assessed 10/01/24 10/01/24 08:27 Currently or been in a relationship where the following occur: I choose not to answer Telehealth Telehealth Telehealth Platform: [employer] Location of provider rendering services: practice address Location of patient: address on file Patient Identification confirmed using: Name, : Yes Telehealth method: video Patient verbally consented to treatment: Yes Patient verbally consented to billing insurance company: Yes Patient informed of any privacy concerns related to visit: Yes Minutes spent on Phone/Video with Pt.: 13 Coding Level of Care Code Tele Est Pt Level 3 (16303) Diagnoses Family history of amyloidosis Z83.49 Assessment & Plan Assessment & Plan (1) Family history of amyloidosis: Code(s): Z83.49 - Family history of other endocrine, nutritional and metabolic diseases Category: Medical Plan . Orders: Orders CA echo transthoracic complete Today Z83.49 - Family history of other endocrine, nutritional and metabolic diseases Referrals Cardiology Referral Z83.49 - Family history of other endocrine, nutritional and metabolic diseases
== END 2025-04-16 08:35 | disposition home or self-care (01) ==
LOC: HO.HMCC 06:57
PROVIDERS: PCP Nurse Practitioner Family; Visit Provider Nurse Practitioner Family
DX: Z83.49 Family history of other endocrine, nutritional and metabolic diseases (principal)

== ENCOUNTER 2025-06-15 10:57 | Outpatient (AMB) | payer OTHER, SELFPAY ==
--- NOTE | 2025-06-15 11:01 | MHC.OFFVIS ---
Intake Visit Reasons: microscopic hematuria Intake Note: New patient presents today for initial visit for microscopic hematuria Urology Medication:None Blood Thinner:None Antibiotic Allergies:None Allergies No Known Allergies Allergy (Verified 06/15/25 11:02) HPI Comments Details: Keven is a 40-year-old male he presents for evaluation due to microscopic hematuria. Denies history of prior tobacco use. Urinalysis today trace blood. He denies irritative voiding symptoms. He denies nocturia. History of Present Illness The patient is a 40-year-old male presenting with microscopic hematuria. The hematuria was identified during routine urinalysis, showing trace blood in the urine. The patient denies any visible blood in the urine or associated symptoms such as dysuria or frequency.I have discussed reasons for blood in the urine may include but are not limited to kidney stones, cancer in the urinary tract, BPH, or inflammatory conditions of the urinary tract. I have discussed workup to include cystoscopy evaluation. The patient has no significant history of tobacco use, having ceased vaping marijuana six to seven months ago. There is no family history of prostate, kidney, or colon cancer, though the patient's father has a history of heart issues and amyloidosis. Results - Urinalysis: Trace blood detected Plan 1. Microscopic Hematuria - Plan to perform imaging of the kidneys and bladder to assess for any abnormalities. - Cystoscopy planned for direct visualization of the bladder lining. - Urine sample sent to pathology for cytological examination to check for abnormal cells. [facility] Medical History HTN (hypertension) Dyslipidemia Surgical History History of knee surgery Social History Housing: House Patient Tobacco Use Status: Never used Tobacco e-Cigarette/Vaping Use: Currently Using Second Hand Smoke Exposure: No service: No Current occupational status: employed Current occupation: [employer] Current occupational exposures/hazards: No Cognitive needs: No Hearing needs: No Vision needs: No Review of Systems Const All systems reviewed & are unremarkable except as noted in HPI and below Reports no additional complaints Eyes Reports no additional complaints ENT Reports no additional complaints Card Reports no additional complaints Resp Reports no additional complaints GI Reports no additional complaints Reports as per HPI Musc Reports no additional complaints Skin/Breast Reports system reviewed and no additional complaints, except as documented Neuro Reports no additional complaints Psych Reports no additional complaints Endo Reports no additional complaints Homero/Lymph Reports no additional complaints Aller/Immun Reports no additional complaints Physical Exam Const General: healthy appearing, no acute distress and well developed Nutritional Appearance: overweight Orientation/consciousness: patient oriented x3 HEENT Head: Yes normocephalic and Yes atraumatic Eyes Conjunctivae: conjunctivae normal Neck Neck: Yes normal visual inspection Chest Chest palpation & inspection: normal inspection of the chest Resp Effort & Inspection: normal respiratory effort GI Inspection: Yes normal to inspection Neuro General: patient oriented x3 Psych Appearance: grossly normal Affect: normal affect Assessment & Plan Assessment & Plan (1) Microscopic hematuria: Code(s): R31.29 - Other microscopic hematuria Category: Medical Plan Plan 1. Microscopic Hematuria - Plan to perform imaging of the kidneys and bladder to assess for any abnormalities. - Cystoscopy planned for direct visualization of the bladder lining. - Urine sample sent to pathology for cytological examination to check for abnormal cells. Patient Instructions: The patient had an opportunity to ask questions regarding treatment plan. The patient expressed understanding and agreement with the above treatment plan. The patient is aware they should contact our office by phone for worsening of their current condition or the appearance of new symptoms. Compliance is encouraged with any medications and followup testing that is ordered. It is a privilege to be allowed the opportunity to participate in the urologic care of your patient. If you have any questions or concerns regarding treatment for the above conditions please do not hesitate to contact me. The office telephone contact is [phone]. This note is constructed in part using voice recognition software. While every effort has been made to ensure accuracy life enrichment specialist errors may have been included. Yours sincerely, Steven Carrasco MD Scribe Plan - Not visible on output: Patient was informed and verbally consented to the use of an ambient scribe for clinic note documentation during this visit. Coding Level of Care Code New Pt Level 4 (47988) Diagnoses Microscopic hematuria R31.29
== END 2025-06-15 11:34 | disposition home or self-care (01) ==
LOC: HO.HUSH 10:57
PROVIDERS: PCP Nurse Practitioner Family; Visit Provider Urology
DX: N40.0 Benign prostatic hyperplasia without lower urinary tract symptoms (principal); R31.29 Other microscopic hematuria
CPT/HCPCS: 99204

== ENCOUNTER 2025-06-15 10:57 | Outpatient (REF) | payer OTHER, SELFPAY | END 2025-06-15 10:58 | disposition home or self-care (01) | LOC: HO.LNP 10:57 | PROVIDERS: PCP Nurse Practitioner Family; Visit Provider Urology | DX: R31.29 Other microscopic hematuria (principal); N40.0 Benign prostatic hyperplasia without lower urinary tract symptoms | CPT/HCPCS: 81003; 88112 ==

== ENCOUNTER 2025-09-16 08:12 | Outpatient (AMB) | payer OTHER, SELFPAY ==
--- NOTE | 2025-09-16 08:34 | A.OFFVIS_ITS ---
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 He is a 40-year-old male, with family history he says a father having amyloidosis. Started with him needing pacemaker and subsequently leading to diagnose of amyloidosis and leading to heart t ransplant as per him. He does not have exact details of his dad's illness including if any genetic testing performed. He is referred here for further evaluation for the same. He has EKGs done through your office showed normal sinus rhythm normal EKGs. However since then he has been diagnose with hyperlipidemia as well as hypertension. Currently taking rosuvastatin 10 mg but he said he is very inconsistent in his about it. His LDL has improved with inconsistent taking. He said he just forgets to take them. He has no cardiovascular symptoms. 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 Says with his daily activity does not have any chest pain or shortness of breath. Denies orthopnea, PND. He said he has now going to focus more on losing weight and leading a more LDL lifestyle. GLP 1 antagonist were declined by the insurance company for unclear reason. He does say that he does have daytime somnolence and has snoring at nighttime. He denies any prolonged palpitation irregular heartbeat. No lightheadedness, syncope. [facility] [place] Medical History HTN (hypertension) Dyslipidemia Surgical History History of knee surgery Family History Father Amyloidosis Social History Housing: House Alcohol intake: current Alcohol intake frequency: holidays/special occasions only Patient Tobacco Use Status: Never used Tobacco e-Cigarette/Vaping Use: Currently Using Second Hand Smoke Exposure: No service: No Current occupational status: employed Current occupation: [employer] Current occupational exposures/hazards: No Cognitive needs: No Hearing needs: No Vision needs: No Review of Systems Const Denies chills, Denies fatigue, Denies fever(s), Denies frequent falls, Denies weakness, Denies weight gain and Denies weight loss ENT Denies dizziness Card Denies chest pain, Denies leg edema, Denies lightheadedness, Denies palpitations, Denies dyspnea, Denies dyspnea on exertion and Denies orthopnea Resp Denies cough, Denies dyspnea and Denies dyspnea on exertion GI Denies bloating and Denies change in bowel habits Musc Denies muscle weakness, Denies numbness and Denies tingling Neuro Denies dizziness, Denies frequent falls, Denies numbness, Denies tingling and Denies weakness Endo Denies fatigue and Denies palpitations Physical Exam Vital Signs: Last Vital Signs Pulse 64 09/16/25 08:35 BP 120/90 H 09/16/25 08:35 BMI result Body Mass Index 47.9 Const General: cooperative, comfortable, no acute distress, alert, awake and Physically active Nutritional Appearance: obese morbidly obese Orientation/consciousness: patient oriented x3 Limitations: no limitations HEENT Head: Yes normocephalic and Yes atraumatic Neck Neck: Yes trachea midline, Yes supple and Yes no JVD Resp Effort & Inspection: normal respiratory effort Auscultation: clear to auscultation bilaterally Cardio Jugular venous distension: no JVD Rate: regular rate Rhythm: regular rhythm Heart sounds: S1 normal heart sound present, S2 normal heart sound present, no click, no gallops and no murmurs GI Auscultation: normal bowel sounds Skin General skin exam: no rashes or lesions noted Neuro General: patient oriented x3 and no focal motor deficits Extrem General: Yes no clubbing, cyanosis or edema Psych Appearance: grossly normal Office Procedures EKG Details: EKGs shows normal sinus rhythm at 64 beats per minute with T-wave inversions in lead 3 and AVF which are new compared to prior EKGs. [id number], Complete Assessment & Plan Assessment & Plan (1) Family history of amyloidosis: Code(s): Z83.49 - Family history of other endocrine, nutritional and metabolic diseases Category: Medical Plan: Family history of amyloidosis in his that. There is high prevalence of specific genetic abnormality in population leading to variant ATTR type of amyloidosis. I have asked Keven to get more information about his father's health including genetic testing if performed which will help us with further risk stratifying him in terms of his risk for familial/genetic/mutant type of amyloidosis. This was discussed with him. He understands agrees. Will obtain echocardiogram to evaluate for structural heart issues. (2) HTN (hypertension): Code(s): I10 - Essential (primary) hypertension Category: Medical Plan: Patient has borderline hypertension. He is currently not on any treatment. He also has significant hyperlipidemia. Overall findings suggestive of metabolic syndrome related to his obesity. This was clearly discussed with him. I think he will benefit from significant weight loss program and will benefit from GLP 1 antagonist. He also has high likelihood of underlying obstructive sleep apnea and will suggest a sleep study to assess for the same. Also suggest an echocardiogram to evaluate for structural heart issues especially given his abnormal EKGs and his family history of amyloidosis. Importance of consistent taking all his medications was discussed. He understands. He is very motivated in pursuing lifestyle modification. Will follow with him if need be. Thank you for allowing me to partake in his care Coding Level of Care Code New Pt Level 4 (82384) Diagnoses Family history of amyloidosis Z83.49 HTN (hypertension) I10 CPT Codes EKG - CPT: 48730-[id number], Complete ([id number])
[2025-09-16 08:35] VITALS: BP 120/90; PULSE 64; BMI 47.9
== END 2025-09-16 08:56 | disposition home or self-care (01) ==
LOC: HO.HCS 08:13
PROVIDERS: PCP Nurse Practitioner Family; Visit Provider Internal Medicine Cardiovascular Disease
DX: Z83.49 Family history of other endocrine, nutritional and metabolic diseases (principal); I10 Essential (primary) hypertension
CPT/HCPCS: 93010; 99204

== ENCOUNTER → 2025-09-16 08:12 | Outpatient (BNVA) | payer OTHER, SELFPAY | PROVIDERS: PCP Nurse Practitioner Family; Visit Provider Internal Medicine Cardiovascular Disease | DX: R03.0 Elevated blood-pressure reading, without diagnosis of hypertension (principal); E78.5 Hyperlipidemia, unspecified; E66.9 Obesity, unspecified; Z83.49 Family history of other endocrine, nutritional and metabolic diseases; Z68.42 Body mass index [BMI] 45.0-49.9, adult | CPT/HCPCS: 93005 ==